=== PATIENT | female | born 1995 | race Caucasian/White ===

== ENCOUNTER 2024-09-02 17:45 | Emergency (ER) | payer MEDICAID, SELFPAY ==
[2024-09-02 17:52] VITALS: BP 129/84; PULSE 77; RESP 18; TEMP 36.7; O2SAT 100; BMI 39.1
--- NOTE | 2024-09-02 19:31 | ED_ITS ---
HPI - Abdominal Pain 2 General: Chief Complaint: Abdominal Pain Stated Complaint: abd pain Time Seen by Provider: 09/02/24 18:59 Source: patient Mode of arrival: ambulatory Limitations: no limitations History of Present Illness: Patient is a 29-year-old female presenting to the emergency department complaining of intermittent abdominal pain for the past couple weeks. Stating it is more constant a day, primarily reported to be in the left upper quadrant but sometimes she can feel the left lower quadrant. No pertinent past medical history, states she did have a tubal ligation 3 years ago but that is all she has a report. Other than some nausea, she has no other symptoms to report at this time. States the pain is an 8/10 at this time, has been taking ibuprofen with no relief. No changes in bowel or bladder, no fever, no vomiting, no history of kidney stones or heavy alcohol use. MD elicited complaint: abdominal pain Pertinent past history: none Onset (ago): week(s) Pain Consistency: intermittent Location: LUQ and LLQ Severity: severe Pain scale (0-10): 8 Exacerbating factors: nothing Relieving factors: nothing Associated Symptoms: Reports nausea; Denies chills, constipation, diarrhea, dysuria, fever(s), hematemesis and vomiting Treatments prior to arrival: NSAIDs Related Data Date of Last Menstrual Period: 08/16/24 Previous Rx's Medication Instructions Recorded hydrocodone 7.5 mg-acetaminophen 1 tab PO Q6H PRN pain 5 days #20 07/27/20 325 mg tablet ([place]) tabs sulfamethoxazole 800 1 tab PO BID 10 days #20 tabs 07/27/20 mg-trimethoprim 160 mg tablet (Bactrim DS) Allergies Allergy/AdvReac Type Severity Reaction Status Date / Time No Known Allergies Allergy Verified 09/02/24 17:58 Review of Systems 2 General: Reports: 10 or more systems reviewed and unremarkable except in HPI and below Const: Denies: fever(s), chills, change in appetite, change in weight or diaphoresis ENMT: Denies: throat pain, hoarseness or swelling of lips/tongue Card: Denies: chest pain, palpitations or lightheadedness Resp: Denies: dyspnea, productive cough or wheezing GI: Reports: abdominal pain and nausea; Denies: vomiting, hematemesis, diarrhea or constipation : Denies: flank pain, difficulty voiding, dysuria, urinary frequency or urinary urgency Musc: Denies: neck pain or back pain Skin/Breast: Denies: rash or new lesions Neuro: Denies: headache(s) or dizziness PFSH ED 2 PFSH: Social History Smoking and tobacco/nicotine status: current every day tobacco/nicotine user cigarettes Female Reproductive History: Date of last menstrual period: 08/16/24 Physical Exam 2 Const: COMMON NORMALS: no acute distress, patient oriented x3, no limitations, healthy appearing, alert and well nourished GENERAL APPEARANCE: cooperative NUTRITIONAL APPEARANCE: obese ORIENTATION/CONSCIOUSNESS: Yes awake OTHER: Nontoxic-appearing, no acute distress noted HENMT: COMMON NORMALS: normocephalic, atraumatic, hearing grossly normal bilaterally, external ears normal, Normal external nose present, Normal nasal mucous membranes and turbinates present and moist oral mucous membranes HEAD & SCALP: normocephalic and atraumatic NOSE: Normal external nose present and Normal nasal mucous membranes and turbinates present EXTERNAL EAR: Yes external ears normal Eye: COMMON NORMALS: Equal, round and reactive pupils present, EOMs intact bilaterally, conjunctivae normal and normal visual cavazos by confrontation C ONJUNCTIVA: Yes conjunctivae normal PUPIL: Yes Equal, round and reactive pupils present Neck/C-Spine: COMMON NORMALS: full ROM, supple, no meningeal signs and no JVD Resp: COMMON NORMALS: normal respiratory effort, No retractions, No use of accessory muscles and clear to auscultation bilaterally AUSCULTATION: clear to auscultation bilaterally, no crackles, no rales, no rhonchi and no wheezes Cardio: COMMON NORMALS: no JVD, regular rate, regular rhythm, S1 normal heart sound present, S2 normal heart sound present, No gallops present (Cardio), No clicks present (Cardio), No murmurs present (Cardio), No rub (Cardio) and Peripheral pulses 2+ throughout RATE: regular rate RHYTHM: regular rhythm HEART SOUNDS: S1 normal heart sound present and S2 normal heart sound present PERIPHERAL PULSES: Peripheral pulses 2+ throughout GI: COMMON NORMALS: Normal to inspection, nondistended, normoactive bowel sounds present, Soft to palpation, No hepatosplenomegaly present and no masses AUSCULTATION: Yes normoactive bowel sounds PALPATION: Yes Soft to palpation, Yes Tenderness to palpation present (GI) Details: LLQ and LUQ, No Guarding due to palpation present (GI), No Rigid due to palpation and Yes No hepatosplenomegaly present RECTAL EXAM: deferred : COMMON NORMALS: Yes no CVA tenderness BLADDER/KIDNEY EXAM: Yes no CVA tenderness Back/Pelvis: COMMON NORMALS: no CVA tenderness Extremity: COMMON NORMALS: normal to inspection and full ROM Neuro: COMMON NORMALS: patient oriented x3, moves all extremities, no focal motor deficits and no sensory deficits noted SENSORIUM/ORIENTATION: Yes alert MENINGEAL SIGNS: Yes no meningeal signs Psych: COMMON NORMALS: mental status grossly normal, cooperative and speech normal SPEECH: Yes normal speech Skin: COMMON NORMALS: no rashes or lesions noted GENERAL SKIN EXAM: no rashes or lesions noted Course 2 Vital Signs: Vital signs: Vital Signs Temperature 98.1 F 09/02/24 17:52 Pulse Rate 67 09/02/24 20:30 Respiratory Rate 19 H 09/02/24 20:00 Blood Pressure 142/69 09/02/24 20:30 Pulse Oximetry 97 09/02/24 20:30 Oxygen Delivery Me thod Room Air 09/02/24 20:30 MDM - Abdominal Pain Medical Decision Making Patient presented with a couple weeks of intermittent abdominal pain becoming more constant today. No pertinent past medical history. Only had some associated nausea, she was given Toradol and Zofran through an IV. Her lab work was all unremarkable. Her urinalysis was contaminated, she had no urinary symptoms to report. CT did not show any acute findings for her left-sided abdominal pain, there was some cholelithiasis but she was not tender in this area. Right now this pain favors musculoskeletal versus any acute visceral abdominal pain, however did encourage her to try Pepcid or other [id number] antacids due to this potentially being related to her stomach/esophagus. Also was encouraged to closely follow-up with primary care specifically if it is not getting better, and to return with any new or worsening. Lab Data 09/02/24 19:30 09/02/24 19:30 Labs/Radiology: Radiology Impressions Abdomen/Pelvis CT 09/02/24 20:12 IMPRESSION: 1. Cholelithiasis with no changes of acute cholecystitis. 2. No acute intra-abdominal process. Laboratory Results WBC 9.10 10^3/uL (3.29-11.43) 09/02/24 19: RBC 4.79 10^6/uL (3.85-5.65) 09/02/24 19: Hgb 12.90 g/dL (11.27-16.99) 09/02/24 19:30 Hct 40.2 % (36-47) 09/02/24 19: MCV 83.9 fl (85-98) L 09/02/24 19: MCH 26.9 pg (27-33) L 09/02/24 19: MCHC 32.1 g/dL (30-55) 09/02/24: RDW 13.6 % (12.1-15.1) 09/02/24 19: Plt Count 181 10^3/cmm (157-399) 09/02/24 19: MPV 11.3 fL (7.4-10.4) H 09/02/24 19: Neut % (Auto) 55.9 % 09/02/24 19:30 Lymph % (Auto) 30.9 % 09/02/24 19:30 [place] % (Auto) 9.9 % 09/02/24 19:30 Eos % (Auto) 2.5 % 09/02/24 19: Baso % (Auto) 0.4 % 09/02/24 19: Neut # (Auto) 5.08 10^3/uL (1.8-7.7) 09/02/24: Lymph # (Auto) 2.8 10^3/uL (0.8-4.8) 09/02/24 19:30 [place] # (Auto) 0.9 10^3/uL (0.2-0.9) 09/02/24 19: Eos # (Auto) 0.2 10^3/uL (0.0-0.8) 09/02/24 19: Baso # (Auto) 0.0 10^3/uL (0.0-0.1) 09/02/24 19:30 Nucleated RBC % (auto) 0 % 09/02/24: Nucleated RBCs # 0.0 /100WBC 09/02/24 19:30 Sodium 139 mmol/L (136-145) 09/02/24 19:30 Potassium 4.2 mmol/L (3.5-5.1) 09/02/24 19:30 Chloride 106 mmol/L (98-107) 09/02/24 19:30 Carbon Dioxide 21 mmol/L (22-29) L 09/02/24 19:30 Anion Gap 16.2 (5-19) 09/02/24 19:30 BUN 16 mg/dL (6-20) 09/02/24 19:30 Creatinine 0.6 mg/dL (0.5-0.9) 09/02/24 19:30 GFR Calculation 116.6 mL/min (90-130) 09/02/24 19: Glucose 91 mg/dL (65-115) 09/02/24 19:30 Calculated Osmolality 289 mOsm/kg (285-295) 09/02/24 19:30 Calcium 8.7 mg/dL (8.5-10.5) 09/02/24 19:30 Total Bilirubin 0.2 mg/dL (0.15-1.2) 09/02/24 19:30 AST 12 U/L (0-32) 09/02/24 19:30 ALT 8 U/L (0-33) 09/02/24 19:30 Alkaline Phosphatase 88 U/L (35-105) 09/02/24 19:30 Total Protein 6.7 g/dL (6.6-8.7) 09/02/24 19:30 Albumin 4.5 g/dL (3.5-5.2) 09/02/24 19:30 Globulin 2.2 g/dL (1.3-4.6) 09/02/24 19:30 Lipase 21 U/L (13-60) 09/02/24 19:30 HCG, Qual Negative (Negative) 09/02/24: Urine Color Yellow (Yellow) 09/02/24:35 Urine Appearance Cloudy (CLEAR) A 09/02/24 19:35 Urine pH 5.5 (5-7) 09/02/24: Ur Specific [place] 1.030 (1.005-1.030) 09/02/24 19:35 Urine Protein Negative (Negative) 09/02/24: Urine Glucose (UA) Negative (Normal) 11/11/24 19:35 Urine Ketones Negative (Negative) 09/02/24 19:35 Urine Blood Negative (Negative) 09/02/24 19:35 Urine Nitrate Negative (Negative) 09/02/24 19:35 Urine Bilirubin Negative (Negative) 09/02/24 19:35 Urine Urobilinogen 1.0 mg/dL (Negative) 09/02/24 19:35 Ur Leukocyte Esterase 1+ (Negative) A 09/02/24 19:35 Urine RBC 11-20 /hpf (0-2) H 09/02/24 19:35 Urine WBC 11-20 /hpf (0-5) H 09/02/24 19:35 Ur Squamous Epith Cells 11-20 /hpf (0-5) 09/02/24 19:35 Amorphous Sediment Not Reportable 09/02/24 19:35 Urine Bacteria 4+ /hpf (NONE) H 09/02/24 19:35 Hyaline Casts 8.67 /lpf 09/02/24 19:35 All radiology interpretation(s) finalized by discharge Discharge Plan Discharge Patient Disposition: Home Clinical Impression: Left sided abdominal pain Condition: Stable Prescriptions: No Action sulfamethoxazole-trimethoprim [Bactrim DS] 800-160 mg tablet 1 tab PO BID 10 Days Qty: 20 0RF hydrocodone-acetaminophen [[place]] 7.5-325 mg tablet 1 tab PO Q6H PRN (Reason: pain) 5 Days Qty: 20 0RF Discharge Orders: Discharge ED (Routine); Ordered 09/02/24 Ordered By: Clemente Da Silva Referrals: Judy Malhotra, [employer] [Primary Care Provider] - Patient Instructions: Abdominal Pain (ED), Pain Management Activity Restrictions/Additional Instructions: Take [id number] Pepcid. You may also take ibuprofen and Tylenol and apply ice/heat to your stomach if this is musculoskeletal. Liquid diet, follow-up with primary care for further evaluation. Return with any new or worsening symptoms. Coding Level of Care Code ED Cultural Historian for [facility]
[2024-09-02 19:39] LABS: Basophils % 0.4 %; Eosinophils # 0.2 10^3/uL (0.0-0.8); Eosinophils % 2.5 %; Hematocrit 40.2 % (36-47); Lymphocytes # 2.8 10^3/uL (0.8-4.8); Lymphocytes % 30.9 %; Mean Corpuscular HGB Conc 32.1 g/dL (30-55); Mean Corpuscular Hemoglobin 26.9 pg (27-33); Mean Corpuscular Volume 83.9 fl (85-98); Mean Platelet Volume 11.3 fL (7.4-10.4); Monocytes # 0.9 10^3/uL (0.2-0.9); Monocytes % 9.9 %; Neutrophils # 5.08 10^3/uL (1.8-7.7); Neutrophils % 55.9 %; Nucleated Red Blood Cells % 0 %; Platelet Count 181 10^3/cmm (157-399); Red Blood Count 4.79 10^6/uL (3.85-5.65); Red Cell Distribution Width 13.6 % (12.1-15.1)
[2024-09-02] MEDS: ondansetron 2 mg/ML SDV 2 mL 4 MG IVP (19:51)
[2024-09-02 19:53] LABS: Bilirubin Urine Negative (Negative); Blood Urine Negative (Negative); Glucose Urine UA Negative (Normal); Ketones Urine Negative (Negative); Leukocyte Esterase Urine 1+ (Negative); Nitrate Urine Negative (Negative); Protein Urine Negative (Negative); Urine Appearance Cloudy (CLEAR); Urine Color Yellow (Yellow); pH Urine 5.5 (5-7)
[2024-09-02] MEDS: ketorolac 60 mg/2 mL INJ 30 MG IVP (19:54)
[2024-09-02 19:55] VITALS: BP 138/90; PULSE 67; RESP 18; O2SAT 97
[2024-09-02 19:55] LABS: Add Urine Microscopic? YES; Bacteria Urine 4+ /hpf; Hyaline Casts Urine 8.67 /lpf
[2024-09-02 20:00] VITALS: PULSE 68; RESP 19; O2SAT 98
[2024-09-02 20:01] LABS: HCG, Serum Qual Negative (Negative)
[2024-09-02 20:02] LABS: Alanine Aminotransferase 8 U/L (0-33); Albumin Level 4.5 g/dL (3.5-5.2); Alkaline Phosphatase 88 U/L (35-105); Anion Gap 16.2 (5-19); Aspartate Amino Transferase 12 U/L (0-32); Blood Urea Nitrogen 16 mg/dL (6-20); Calcium 8.7 mg/dL (8.5-10.5); Carbon Dioxide 21 mmol/L (22-29); Chloride 106 mmol/L (98-107); Globulin 2.2 g/dL (1.3-4.6); Glomerular Filtration Rate 116.6 mL/min (90-130); Glucose 91 mg/dL (65-115); Lipase 21 U/L (13-60); Osmolality Calculated 289 mOsm/kg (285-295); Potassium 4.2 mmol/L (3.5-5.1); Sodium 139 mmol/L (136-145); Total Bilirubin 0.2 mg/dL (0.15-1.2); Total Protein 6.7 g/dL (6.6-8.7)
--- NOTE | 2024-09-02 20:12 | CTR_ITS ---
PROCEDURE INFORMATION: Exam: CT Abdomen And Pelvis With Contrast Exam date and time: 09/02/2024 8:27 PM Age: 29 years old Clinical indication: Abdominal pain; Additional info: Left side abd pain TECHNIQUE: Imaging protocol: Computed tomography of the abdomen and pelvis with contrast. Radiation optimization: All CT scans at this facility use at least one of these dose optimization techniques: automated exposure control; mA and/or kV adjustment per patient size (includes targeted exams where dose is matched to clinical indication); or iterative reconstruction. Contrast material: OMNI 350; Contrast volume: 100 ml; Contrast route: INTRAVENOUS (IV); COMPARISON: No relevant prior studies available. RADIATION DOSE METRICS: Total DLP (mGy-cm): 999.21 FINDINGS: Lungs: Atelectasis in the lingula. Liver: Normal. No mass. Gallbladder and biliary ducts: Calcified gallstones. Pancreas: Normal. No ductal dilation. Spleen: Normal. No splenomegaly. Adrenal glands: Normal. No mass. Kidneys and ureters: Normal. No hydronephrosis. Stomach and bowel: Unremarkable. No obstruction. No mucosal thickening. Appendix: No evidence of appendicitis. Intraperitoneal space: Unremarkable. No free air. No significant fluid collection. Vasculature: Unremarkable. No abdominal aortic aneurysm. Lymph nodes: Unremarkable. No enlarged lymph nodes. Urinary bladder: Unremarkable as visualized. Reproductive: Unremarkable as visualized. Bones/joints: Mild curvature of the upper lumbar spine convex to the left. Posterior disc bulge at L4-L5 and L5-S1 causing mild anterior thecal sac compression. Soft tissues: Fat containing umbilical hernia. CT/CT abdomen pelvis w con* [id number] IMPRESSION: 1. Cholelithiasis with no changes of acute cholecystitis. 2. No acute intra-abdominal process.
[2024-09-02 20:30] VITALS: BP 142/69; PULSE 67; O2SAT 97
[2024-09-02] MEDS: iohexol 350 mg/mL 500 mL Btl (per mL) IV (20:30)
[2024-09-02 21:55] VITALS: BP 124/76; PULSE 90; O2SAT 96
== END 2024-09-02 21:56 | disposition home or self-care (01) ==
PROVIDERS: Emergency Medicine; Emergency Provider Physician Assistant; PCP Nurse Practitioner
DX: R10.9 Unspecified abdominal pain (principal); F17.210 Nicotine dependence, cigarettes, uncomplicated
CPT/HCPCS: 74177; 80053; 81001; 83690; 84703; 85025; 96374; 96375; 99285; J1885; J2405